=== PATIENT | female | born 1995 | race Caucasian/White ===

== ENCOUNTER 2020-05-13 19:15 | Emergency (ER) | payer OTHER, SELFPAY ==
[2020-05-13 19:19] VITALS: BP 127/83; PULSE 94; RESP 18; TEMP 36.9; O2SAT 99; BMI 35.2
--- NOTE | 2020-05-13 19:52 | W.ED.EXTPRO ---
HPI - Extremity Problem General: Chief complaint: Extremity Injury, Upper Stated complaint: ring stuck on finger Time Seen by Provider: 05/13/20 19:30 History of Present Illness: HPI Narrative: Patient is a 24-year-old female who is who comes to the ED because wedding ring is stuck on fourth digit on the left hand. Patient is and says her hands been swelling and now she cannot get her wedding band off her finger. Denies any finger injury or loss of sensation to finger. Patient denies any other symptoms or complaints. Associated symptoms: Deny chest pain, fever(s) or rash Review of Systems Const: Denies: fever(s), chills or fatigue Eyes: Denies: change in vision or eye discomfort ENMT: Denies: throat pain, odynophagia, nasal discharge or nasal congestion Card: Denies: chest pain, palpitations, edema, swelling of feet/ankles, dyspnea on exertion or orthopnea Resp: Denies: dyspnea, productive cough or non-productive cough GI: Denies: abdominal pain, nausea, vomiting, diarrhea, constipation or hematochezia : Denies: flank pain, dysuria or hematuria Musc: Reports: other (Malingering stuck on fourth digit of left hand.); Denies: neck pain, back pain or extremity swelling Skin/Breast: Denies: rash or new lesions Neuro: Denies: headache(s), numbness in extremities or weakness in extremities Physical Exam Const: COMMON NORMALS: no acute distress, patient oriented x3 and alert GENERAL APPEARANCE: cooperative and comfortable HENMT: COMMON NORMALS: normocephalic HEAD & SCALP: normocephalic MOUTH: Normal oral and palatal mucosa present THROAT: posterior oropharynx normal and uvula midline Neck/C-Spine: COMMON NORMALS: supple GENERAL: Yes normal visual inspection Resp: COMMON NORMALS: normal respiratory effort, No retractions, No use of accessory muscles and clear to auscultation bilaterally AUSCULTATION: clear to auscultation bilaterally Cardio: COMMON NORMALS: regular rate, regular rhythm, S1 normal heart sound present, S2 normal heart sound present, No gallops present (Cardio), No clicks present (Cardio), No murmurs present (Cardio) and Peripheral pulses 2+ throughout RATE: regular rate RHYTHM: regular rhythm HEART SOUNDS: S1 normal heart sound present and S2 normal heart sound present PERIPHERAL PULSES: Peripheral pulses 2+ throughout GI: COMMON NORMALS: Normal to inspection, nondistended, normoactive bowel sounds present, Soft to palpation, non-tender and no masses PALPATION: Yes Soft to palpation : COMMON NORMALS: Yes no CVA tenderness BLADDER/KIDNEY EXAM: Yes no CVA tenderness Back/Pelvis: COMMON NORMALS: no CVA tenderness Extremity: NARRATIVE EXTREMITY EXAM: Patient had wedding band on left hand fourth digit that appeared to be tight. Cap refill was normal and sensation was intact. Neuro: COMMON NORMALS: patient oriented x3 and moves all extremities SENSORIUM/ORIENTATION: Yes alert Skin: GENERAL SKIN EXAM: dry skin Course ED course: Lubrication was used first and was unsuccessful in removing the ring. Ring cutters were used and wedding band was removed successfully. Patient had normal cap refill to finger and sensation intact. Vital Signs: Vital signs: Vital Signs Temperature 98.5 F 05/13/20 19:19 Pulse Rate 91 05/13/20 20:01 Respiratory Rate 18 05/13/20 20:01 Blood Pressure 130/90 05/13/20 20:01 Pulse Oximetry 98 05/13/20 20:01 MDM - Extremity (Nontraumatic) MDM Narrative: Medical decision making narrative: Patient is a 24-year-old female comes to the ED with wedding ring stuck on left fourth digit. Patient is and says her hands been swelling and now she cannot get her wedding band off her finger. Lubrication was applied on finger and attempt to remove ring was unsuccessful. Ring cutters were used and ring was removed with patient's approval and okay. Wedding Ring contents were placed in a plastic bag and given back to patient. After ring was removed patient's finger appeared normal, cap refill normal and sensation was intact. 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 Return to ED precautions given. Patient understood and agreed with plan. Discharge Plan Discharge Patient Disposition: Home Clinical Impression: Ring or other jewelry causing external constriction, initial encounter Condition: Stable Discharge Orders: Discharge Order (Routine); Ordered 05/13/20 Ordered By: Ranulfo Floyd Referrals: Gurinder Victor MD [Primary Care Provider] - Discharge Diet: Regular Discharge Activity: Resume usual activity Activity Restrictions/Additional Instructions: Follow-up with medical provider as directed. Return to the ER or your medical provider if condition worsens. Please read and understand discharge instructions. If any questions, please ask. Discharge Date/Time: 05/13/20 20:01 Coding Level of Care Code ED Front End Specialist for Duncan Fwd Exam Comprehensive
[2020-05-13 20:01] VITALS: BP 130/90; PULSE 91; RESP 18; O2SAT 98
== END 2020-05-13 20:01 | disposition home or self-care (01) ==
PROVIDERS: Emergency Provider Physician Assistant; PCP Family Medicine
DX: O9A.219 Injury, poisoning and certain other consequences of external causes complicating pregnancy, unspecified trimester (principal); S60.445A External constriction of left ring finger, initial encounter; Z3A.00 Weeks of gestation of pregnancy not specified; W49.04XA Ring or other jewelry causing external constriction, initial encounter
CPT/HCPCS: 12345; 99281; 99282

== ENCOUNTER 2022-08-01 20:47 | Emergency (ER) | payer OTHER, SELFPAY ==
[2022-08-01 20:57] VITALS: BP 127/87; PULSE 95; RESP 18; TEMP 37.1; O2SAT 98; BMI 33.7
[2022-08-01 21:14] LABS: Add Urine Microscopic? NO; Charge for UA Resulting for Rev
[2022-08-01 21:39] LABS: Bilirubin Urine Neg (Negative); Blood Urine Neg (Negative); Glucose Urine UA Norm (Normal); Ketones Urine Negative (Negative); Leukocyte Esterase Urine Negative (Negative); Nitrate Urine Negative (Negative); Protein Urine Neg (Negative); Specific Gravity, Urine 1.015 (1.005-1.030); Urine Appearance Clear (CLEAR); Urine Color Colorless (Yellow); Urobilinogen Urine Norm (Negative); pH Urine 5 (5-7)
--- NOTE | 2022-08-01 21:39 | CTR_ITS ---
PROCEDURE INFORMATION: Exam: CT Abdomen And Pelvis With Contrast Exam date and time: 08/01/2022 11:12 PM Age: 27 years old Clinical indication: Abdominal pain; Localized; Prior surgery; Surgery type: Csection; Patient HX: C/O lower abd pain with nausea. TECHNIQUE: Imaging protocol: Computed tomography of the abdomen and pelvis with contrast. Radiation optimization: All CT scans at this facility use at least one of these dose optimization techniques: automated exposure control; mA and/or kV adjustment per patient size (includes targeted exams where dose is matched to clinical indication); or iterative reconstruction. Contrast material: OMNI 350; Contrast volume: 100 ml; Contrast route: INTRAVENOUS (IV); COMPARISON: No relevant prior studies available. RADIATION DOSE METRICS: Total DLP (mGy-cm): 638.42 FINDINGS: Lungs: The lung bases are clear. Liver: Unremarkable. Gallbladder and bile ducts: Possible 5 mm polyp along the anterior wall of the gallbladder, (axial image # 26, series 3). A small adherent gallstone is not excluded. Ultrasound would be more specific/sensitive for detecting gallstones, if clinically needed. No other definite gallbladder abnormality by CT. No biliary tree dilation. Pancreas: Unremarkable. Spleen: Unremarkable. Adrenal glands: Unremarkable. Kidneys and ureters: No hydronephrosis of either kidney. No visible ureteral calculus. No perinephric fluid. The kidneys enhance homogeneously. Stomach and bowel: Several proximal small bowel loops in the left abdomen are fluid-filled and borderline to mildly prominent in size. The bowel loops measure up to about 2.8 cm in diameter. The overall appearance is not strongly suggestive of significant small bowel obstruction at this time, no obvious transition point. An early/partial small bowel obstruction is difficult to entirely exclude by CT. This appearance could be secondary to some form of gastroenteritis. Please correlate clinically. If there is clinical suspicion for small bowel obstruction, follow-up may be helpful to exclude progression. There are no CT findings to strongly suggest diverticulitis. Appendix: The appendix is visualized and appears normal. Intraperitoneal space: No free intraperitoneal air, or generalized ascites. Vasculature: No evidence for abdominal aortic aneurysm. Lymph nodes: No retroperitoneal adenopathy. Urinary bladder: No visible calculus in the urinary bladder. Reproductive: The right ovary contains an 18-19 mm dominant follicle versus small cyst. Additional smaller 10-12 mm possible cystic area in the right ovary, also containing some fat attenuation. This raises suspicion for a small right ovarian dermoid. Significance of these findings is uncertain due to relatively small size. Mild to moderate amount of relatively low attenuation cul-de-sac fluid. Bones/joints: No significant acute finding. Soft tissues: No significant acute finding. CT/CT abdomen pelvis w con* [id number] IMPRESSION: 1. Normal appendix. 2. Several proximal small bowel loops fluid-filled and borderline/mildly prominent in size, see above discussion. This appearance could be secondary to some form of gastroenteritis. 3. No free intraperitoneal air. 4. Suspect a small possible gallbladder wall polyp, see above discussion. 5. 18-19 mm right ovarian dominant follicle versus small cyst. Additional 10-12 mm possible cystic area in the right ovary, also containing some fat attenuation. See above details/discussion. Mild to moderate amount of cul-de-sac fluid. 6. Other findings discussed above.
[2022-08-01] MEDS: sodium chloride 0.9% 1,000 ML 999 ML IV (22:04)
[2022-08-01] MEDS: diphenhydrAMINE 50 mg/mL SDV 1mL IVP (22:05)
[2022-08-01] MEDS: metoclopramide 5 mg/mL SDV 2 mL 10 MG IVP (22:07)
[2022-08-01 22:09] VITALS: RESP 19; O2SAT 98
[2022-08-01] MEDS: morphine 4 mg/mL SDV 1 mL IVP (22:09)
--- NOTE | 2022-08-01 22:39 | W.ED.ABDPA2 ---
HPI - Abdominal Pain General: Chief Complaint: Abdominal Pain Stated Complaint: ABD Pains Time Seen by Provider: 08/01/22 21:31 Source: patient Mode of arrival: ambulatory Limitations: no limitations History of Present Illness: 27-year-old female states she been having abdominal cramping diarrhea. She states that sitting on for 2 hours her cramping severe in nature states she had multiple episodes of this in the past unsure as what caused it. She denies any vomiting she denies any fever rates her pain currently is 6 out of 10. She denies any worsening improving factors. Associated Symptoms: Reports diarrhea and nausea; Denies chills, dysuria and fever(s) Review of Systems Const: Denies: fever(s), chills, body aches or change in appetite Eyes: Denies: blurry vision or eye discomfort ENMT: Denies: throat pain or dental pain Card: Denies: chest pain Resp: Denies: dyspnea GI: Reports: abdominal pain, nausea and diarrhea : Denies: dysuria Musc: Denies: neck pain or back pain Skin/Breast: Denies: rash Neuro: Denies: headache(s) Psych: Denies: depression [place]/Lymph: Denies: easy bruising All/Imm: Denies: urticaria PFSH ED PFSH: Medical History (Updated 08/02/22 @ 00:39 by Hugo Kaplan MD) No pertinent past medical history Social History (Updated 08/01/22 @ 22:40 by Hugo Kaplan MD) Substance/Drug Use: never Physical Exam Const: COMMON NORMALS: no acute distress, patient oriented x3 and healthy appearing HENMT: COMMON NORMALS: normocephalic and atraumatic HEAD & SCALP: normocephalic and atraumatic Eye: COMMON NORMALS: Equal, round and reactive pupils present and EOMs intact bilaterally PUPIL: Yes Equal, round and reactive pupils present Neck/C-Spine: COMMON NORMALS: full ROM and supple Chest: COMMONS NORMALS: normal inspection of the chest and normal palpation of entire chest wall Resp: COMMON NORMALS: normal respiratory effort, No retractions, No use of accessory muscles and clear to auscultation bilaterally AUSCULTATION: clear to auscultation bilaterally Cardio: COMMON NORMALS: regular rate, regular rhythm and No murmurs present (Cardio) RATE: regular rate RHYTHM: regular rhythm GI: COMMON NORMALS: Normal to inspection, nondistended, normoactive bowel sounds present, Soft to palpation, non-tender and no masses PALPATION: Yes Soft to palpation Extremity: COMMON NORMALS: normal to inspection and full ROM Neuro: COMMON NORMALS: patient oriented x3, moves all extremities and no focal motor deficits Psych: COMMON NORMALS: mental status grossly normal, Normal thought process present and cooperative THOUGHT PROCESS: Normal thought process present Skin: COMMON NORMALS: no rashes or lesions noted and no wounds GENERAL SKIN EXAM: no rashes or lesions noted Course Vital Signs: Vital signs: Vital Signs Temperature 98.7 F 08/01/22 20:57 Pulse Rate 95 08/01/22 20:57 Respiratory Rate 19 H 08/01/22 22:09 Blood Pressure 127/87 08/01/22 20:57 Pulse Oximetry 98 08/01/22 22:09 Oxygen Delivery Me thod 08/01/22 20:57 MDM - Abdominal Pain Medical Decision Making Patient presents with abdominal pain she feels much improved here she had no diarrhea or vomiting here CT did show a ovarian cyst she has no signs of torsion she stable for discharge she is to follow-up with her OB and return if worsening. Lab Data : 08/01/22 21:40 08/01/22 21:40 Labs/Radiology: Radiology Impressions Abdomen/Pelvis CT 08/01/22 21:39 IMPRESSION: 1. Normal appendix. 2. Several proximal small bowel loops fluid-filled and borderline/mildly prominent in size, see above discussion. This appearance could be secondary to some form of gastroenteritis. 3. No free intraperitoneal air. 4. Suspect a small possible gallbladder wall polyp, see above discussion. 5. 18-19 mm right ovarian dominant follicle versus small cyst. Additional 10-12 mm possible cystic area in the right ovary, also containing some fat attenuation. See above details/discussion. Mild to moderate amount of cul-de-sac fluid. 6. Other findings discussed above. Laboratory Results WBC 14.3 10^3/uL (4.0-10.0) H 08/01/22 21:40 RBC 5.05 10^6/uL (4.1-5.3) 08/01/22 21:40 Hgb 14.7 g/dL (11.5-15.3) 08/01/22 21:40 Hct 43.6 % (37.0-47.0) 08/01/22 21:40 MCV 86.3 fl (81-99) 08/01/22 21:40 MCH 29.1 pg (28.0-34.0) 08/01/22 21:40 MCHC 33.7 g/dL (30.0-36.0) 08/01/22 21:40 RDW 12.3 % (12.1-15.1) 08/01/22 21:40 Plt Count 348 10^3/cmm (130-400) 08/01/22 21:40 MPV 10.1 fL (7.4-10.4) 08/01/22 21:40 Neut % (Auto) 80.7 % 08/01/22 21:40 Lymph % (Auto) 13.4 % 08/01/22 21:40 [place] % (Auto) 4.3 % 08/01/22 21:40 Eos % (Auto) 0.7 % 08/01/22 21:40 Baso % (Auto) 0.5 % 08/01/22 21:40 Neut # (Auto) 11.54 10^3/uL (1.8-7.7) H 08/01/22 21:40 Lymph # (Auto) 1.9 10^3/uL (0.8-4.8) 08/01/22 21:40 [place] # (Auto) 0.6 10^3/uL (0.2-0.9) 08/01/22 21:40 Eos # (Auto) 0.1 10^3/uL (0.0-0.8) 08/01/22 21:40 Baso # (Auto) 0.1 10^3/uL (0.0-0.1) 08/01/22 21:40 Nucleated RBC % (auto) 0 % 08/01/22:40 Nucleated RBCs # 0.0 /100WBC 08/01/22 21:40 Sodium 142 mmol/L (136-145) 08/01/22 21:40 Potassium 3.7 mmol/L (3.5-5.1) 08/01/22 21:40 Chloride 102 mmol/L (98-107) 08/01/22 21:40 Carbon Dioxide 26 mmol/L (22-29) 08/01/22 21:40 Anion Gap 17.7 (5-19) 08/01/22 21:40 BUN 7 mg/dL (6-20) 08/01/22 21:40 Creatinine 0.8 mg/dL (0.5-0.9) 08/01/22 21:40 GFR Calculation 85.4 mL/min (90-130) L 08/01/22 21:40 Glucose 103 mg/dL (65-115) 08/01/22 21:40 Calculated Osmolality 292 mOsm/kg (285-295) 08/01/22 21:40 Calcium 10.0 mg/dL (8.5-10.5) 08/01/22 21:40 Total Bilirubin 0.5 mg/dL (0.15-1.2) 08/01/22 21:40 AST 14 U/L (0-32) 08/01/22 21:40 ALT 13 U/L (0-33) 08/01/22 21:40 Alkaline Phosphatase 74 U/L (35-105) 08/01/22 21:40 Total Protein 7.8 g/dL (6.6-8.7) 08/01/22 21:40 Albumin 4.8 g/dL (3.5-5.2) 08/01/22 21:40 Globulin 3.0 g/dL (1.3-4.6) 08/01/22 21:40 Lipase 48 U/L (13-60) 08/01/22 21:40 HCG, Qual Negative (Negative) 08/01/22 21:08 Urine Color Colorless (Yellow) 08/01/22 21:08 Urine Appearance Clear (CLEAR) 08/01/22 21:08 Urine pH 5 (5-7) 08/01/22 21:08 Ur Specific [place] 1.015 (1.005-1.030) 08/01/22 21:08 Urine Protein Neg (Negative) 08/01/22 21:08 Urine Glucose (UA) Norm (Normal) 08/01/22 21: Urine Ketones Negative (Negative) 08/01/22 21:08 Urine Blood Neg (Negative) 08/01/22 21:08 Urine Nitrate Negative (Negative) 08/01/22 21:08 Urine Bilirubin Neg (Negative) 08/01/22 21: Urine Urobilinogen Norm mg/dL (Negative) 08/01/22 21:08 Ur Leukocyte Esterase Negative (Negative) 08/01/22 21:08 Discharge Plan Discharge Patient Disposition: Home Clinical Impression: Abdominal pain, Ovarian cyst Prescriptions: New hydrocodone-acetaminophen 5-325 mg tablet 1 tab PO Q6H PRN (Reason: pain) Qty: 14 0RF ondansetron 4 mg tablet,disintegrating 4 mg PO Q6H PRN (Reason: nausea and vomiting) Qty: 14 0RF dicyclomine 20 mg tablet 20 mg PO TID PRN (Reason: abdominal pain) Qty: 20 1RF Discharge Orders: Discharge ED (Routine); Ordered 08/02/22 Ordered By: Hugo Kaplan Discharge Diet: Advance as tolerated Discharge Activity: Resume usual activity Patient Instructions: Ovarian Cyst (ED), Abdominal Pain (ED), Opioid Safety Coding Level of Care Code ED Electro Mechanical Engineer for Chg Fwd Exam Comprehensive
[2022-08-01 22:56] LABS: Basophils # 0.1 10^3/uL (0.0-0.1); Basophils % 0.5 %; Eosinophils # 0.1 10^3/uL (0.0-0.8); Eosinophils % 0.7 %; Hematocrit 43.6 % (37.0-47.0); Hemoglobin 14.7 g/dL (11.5-15.3); Lymphocytes # 1.9 10^3/uL (0.8-4.8); Lymphocytes % 13.4 %; Mean Corpuscular HGB Conc 33.7 g/dL (30.0-36.0); Mean Corpuscular Hemoglobin 29.1 pg (28.0-34.0); Mean Corpuscular Volume 86.3 fl (81-99); Mean Platelet Volume 10.1 fL (7.4-10.4); Monocytes # 0.6 10^3/uL (0.2-0.9); Monocytes % 4.3 %; Neutrophils # 11.54 10^3/uL (1.8-7.7); Neutrophils % 80.7 %; Nucleated Red Blood Cells % 0 %; Platelet Count 348 10^3/cmm (130-400); Red Blood Count 5.05 10^6/uL (4.1-5.3); Red Cell Distribution Width 12.3 % (12.1-15.1); White Blood Count 14.3 10^3/uL (4.0-10.0)
[2022-08-01 23:05] LABS: HCG Qualitative Urine. Negative (Negative)
[2022-08-01 23:14] LABS: Alanine Aminotransferase 13 U/L (0-33); Albumin Level 4.8 g/dL (3.5-5.2); Alkaline Phosphatase 74 U/L (35-105); Anion Gap 17.7 (5-19); Aspartate Amino Transferase 14 U/L (0-32); Blood Urea Nitrogen 7 mg/dL (6-20); Carbon Dioxide 26 mmol/L (22-29); Chloride 102 mmol/L (98-107); Glomerular Filtration Rate 85.4 mL/min (90-130); Glucose 103 mg/dL (65-115); Lipase 48 U/L (13-60); Osmolality Calculated 292 mOsm/kg (285-295); Potassium 3.7 mmol/L (3.5-5.1); Sodium 142 mmol/L (136-145); Total Bilirubin 0.5 mg/dL (0.15-1.2); Total Protein 7.8 g/dL (6.6-8.7)
[2022-08-01] MEDS: iohexol 350 mg/mL 500 mL Btl (per mL) IV (23:16)
[2022-08-02] MEDS: sodium chloride 0.9% 1,000 ML 999 ML IV (00:11)
[2022-08-02 00:47] VITALS: BP 125/84; PULSE 87; RESP 17; TEMP 37.1; O2SAT 99
== END 2022-08-02 00:49 | disposition home or self-care (01) ==
PROVIDERS: Emergency Provider Emergency Medicine
DX: N83.201 Unspecified ovarian cyst, right side (principal)
CPT/HCPCS: 74177; 80053; 81003; 81025; 83690; 85025; 96361; 96374; 96375; 99284; J1200; J2270; J2765; J7030; Q9967

== ENCOUNTER 2024-09-12 21:31 | Emergency (ER) | payer OTHER, SELFPAY ==
[2024-09-12 22:05] VITALS: BP 125/76; PULSE 90; RESP 16; TEMP 36.8; O2SAT 98; BMI 25.0
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
== END 2024-09-12 23:22 | disposition home or self-care (01) ==
PROVIDERS: Emergency Provider Physician Assistant
DX: S16.1XXA Strain of muscle, fascia and tendon at neck level, initial encounter (principal); V89.2XXA Person injured in unspecified motor-vehicle accident, traffic, initial encounter
CPT/HCPCS: 72040; 99283